=== PATIENT | female | born 1955 | race Caucasian/White ===

== ENCOUNTER → 2019-03-20 12:20 | Outpatient (CLI) | payer OTHER, SELFPAY ==
--- NOTE | 2019-03-20 | DI.MG.S_ITS ---
BILATERAL DIGITAL SCREENING MAMMOGRAM 3D/2D WITH CAD: 03/20/2019 CLINICAL: Routine screening. Comparison is made to exams dated: 02/24/2017 mammogram - [facility], 05/02/2013 mammogram, and 04/16/2012 mammogram - [facility]. The tissue of both breasts is heterogeneously dense. This may lower the sensitivity of mammography. Current study was also evaluated with a Computer Aided Detection (CAD) system. No significant masses, calcifications, or other findings are seen in either breast. There has been no significant interval change. IMPRESSION: NEGATIVE There is no mammographic evidence of malignancy. A 1 year screening mammogram is recommended. This exam was interpreted at Station ID: [id number]. NOTE: For mammograms, a report in lay terms will be sent to the patient. Approximately 15% of breast malignancies will not be visualized mammographically. In the management of a palpable breast mass, a negative mammogram must not discourage biopsy of a clinically suspicious lesion. Electronically Signed By: Emil boateng/jami:03/20/2019 16:53:43 letter sent: Normal Exam ACR BI-RADS Category 1: Negative 3341F
== END ==
PROVIDERS: PCP Nurse Practitioner Family; Visit Provider Nurse Practitioner Family
DX: Z12.31 Encounter for screening mammogram for malignant neoplasm of breast (principal)
CPT/HCPCS: 77063; 77067

== ENCOUNTER → 2021-03-09 10:43 | Outpatient (CLI) | payer MEDICARE, OTHER, SELFPAY ==
--- NOTE | 2021-03-09 | DI.MG.S_ITS ---
BILATERAL DIGITAL SCREENING MAMMOGRAM 3D/2D WITH CAD: 03/09/2021 CLINICAL: Routine screening. Comparison is made to exams dated: 03/20/2019 mammogram - [facility], 05/02/2013 mammogram [facility], and 02/24/2017 mammogram - [facility]. The tissue of both breasts is heterogeneously dense. This may lower the sensitivity of mammography. Current study was also evaluated with a Computer Aided Detection (CAD) system. No significant masses, calcifications, or other findings are seen in either breast. There has been no significant interval change. IMPRESSION: NEGATIVE There is no mammographic evidence of malignancy. A 1 year screening mammogram is recommended. This exam was interpreted at Station ID: [id number]. NOTE: For mammograms, a report in lay terms will be sent to the patient. Approximately 15% of breast malignancies will not be visualized mammographically. In the management of a palpable breast mass, a negative mammogram must not discourage biopsy of a clinically suspicious lesion. Electronically Signed By: Nilson barraza/jami:03/09/2021 12:35:52 letter sent: Normal Exam ACR BI-RADS Category 1: Negative 3341F
--- NOTE | 2021-03-09 10:53 | DI.CT.S_ITS ---
PROCEDURE: CT CHEST WO CON INDICATIONS: left lower lobe nodule TECHNIQUE: Noncontrast 5 mm thick sections acquired from the pulmonary apices to the posterior costophrenic angles. 1 mm lung window, 5 mm thick coronal and sagittal and 7 mm axial MIP reformats were then acquired. For radiation dose reduction, the following was used: automated exposure control, adjustment of mA and/or kV according to patient size. COMPARISON: [facility], , CT THORAX W/O CONTRAST, 09/16/2020, 6:31. FINDINGS: Image quality: Excellent. Lungs and pleura: Irregular subpleural nodule in the superior segment left lower lobe measures 7 mm, stable. 3 mm subpleural nodule lateral left upper lobe, is also stable. No other lung nodules. Central and peripheral airways are patent without bronchial wall thickening or bronchiectasis. No pleural effusions or pleural calcifications. Mediastinum: Heart size is normal. No pericardial effusion. No mediastinal adenopathy by size criteria. Thoracic aorta and central pulmonary arteries are normal in size. Esophagus is normal in caliber. No hiatal hernia. Bones and chest wall: No suspicious bony lesions. No vertebral body compression fractures. No axillary or supraclavicular adenopathy by size criteria. Thyroid gland contains two coarse calcifications in the right lobe. . Abdomen: There is a peripherally calcified cystic lesion within the anterior spleen measuring 1.5 cm. Visualized upper abdominal solid organs and bowel loops appear otherwise normal in the absence of contrast. IMPRESSION: 1. Stable left upper and lower lung nodules, the larger measuring 7 mm. 12-18 month follow-up is recommended. 2. Heterogeneous thyroid gland with calcifications. Consider thyroid ultrasound if not previously performed. 3. Calcified splenic lesion, likely result of old injury or infection. Dictated by: Kelsea Choi M.D. on 03/09/2021 at 15:07 Approved by: Kelsea Choi M.D. on 03/09/2021 at 15:14
== END ==
PROVIDERS: PCP Nurse Practitioner; Referring Provider Nurse Practitioner; Visit Provider Nurse Practitioner
DX: Z12.31 Encounter for screening mammogram for malignant neoplasm of breast (principal)
CPT/HCPCS: 71250; 77063; 77067

== ENCOUNTER → 2021-03-16 15:08 | Outpatient (CLI) | payer MEDICARE, OTHER, SELFPAY ==
[2021-03-16 16:44] LABS: Thyroid Stimulating Hormone 7.13 uIU/mL (0.47-4.68)
== END ==
PROVIDERS: PCP Nurse Practitioner; Referring Provider Nurse Practitioner; Visit Provider Nurse Practitioner
DX: E03.9 Hypothyroidism, unspecified (principal); Z79.899 Other long term (current) drug therapy
CPT/HCPCS: 36415; 84443

== ENCOUNTER → 2021-03-23 11:15 | Outpatient (CLI) | payer MEDICARE, OTHER, SELFPAY ==
--- NOTE | 2021-03-23 11:16 | DI.US.S_ITS ---
PROCEDURE: US THYROID INDICATIONS: FOLLOW UP CT 03/09/2021 TECHNIQUE: Real-time scanning was performed of the thyroid gland, with image documentation. COMPARISON: [facility], CT, CT CHEST WO [facility], 03/09/2021, 10:56. FINDINGS: Right: Thyroid lobe measures 5.4 x 1.5 x 1.5 cm. Texture is heterogenous.. Left: Thyroid lobe measures 4.6 x 1.3 x 1.5 cm. Texture is heterogenous. Isthmus: 5.5 mm thick. Nodule number: 1 Location: Right superior lobe Size: 4 x 7 mm cm. Composition: Solid Echogenicity: Hyperechoic shadowing Shape: wider than tall. Margins: Smooth Echogenic foci: Macrocalcification Total points: 4 ACR TI-RADS category: 4, less than 1.5 cm Nodule number: 2 Location: Right midpole Size: 8 x 7 x 7 mm cm. Composition: Solid Echogenicity: Hypoechoic Shape: Wider than tall Margins: Smooth Echogenic foci: Peripheral calcifications Total points: 6 ACR TI-RADS category: 4, less than 1.5 cm Nodule number: 3 Location: Left inferior Size: 2.0 x 1.4 x 0.8 cm cm. Composition: Predominantly solid Echogenicity: Hyperechoic Shape: wider than tall. Margins: Smooth Echogenic foci: None Total points: 3 ACR TI-RADS category: 3, less than 2.5 cm Nodule number: 4 Location: Solid Size: 1.3 x 0.9 x 0.5 Composition: Solid Echogenicity: Hypoechoic Shape: wider than tall. Margins: Smooth Echogenic foci: None Total points: 4 ACR TI-RADS category: 4, less than 1.5 cm IMPRESSION: Heterogenous multinodular thyroid. Recommend follow-up ultrasound in 1 year to ensure stability. Dictated by: Ed iJn M.D. on 03/23/2021 at 15:12 Approved by: Ed Jin M.D. on 03/23/2021 at 15:38
== END ==
PROVIDERS: PCP Nurse Practitioner; Referring Provider Nurse Practitioner; Visit Provider Registered Nurse
DX: E04.2 Nontoxic multinodular goiter (principal)
CPT/HCPCS: 76536

== ENCOUNTER → 2021-04-22 13:39 | Outpatient (CLI) | payer MEDICARE, OTHER, SELFPAY ==
--- NOTE | 2021-04-22 13:39 | DI.ECHO.S_ITS ---
[facility]+ [facility] +---------+ : : [address] [place] : : : : [id number] : : : : Phone: [phone]+ Echocardiogram Report + + :Name: FAVIO DE SANTIAGO Study Date: 04/22/2021 Height: 66.5 in: :[facility] ReadingLocation: Weight: 190 lb : : Gender: Female BSA: 2.0 m2 : :: 1955 Age: 65 yrs BP: 164/82 mmHg: :Reason For Study: MURMUR : :Ordering Physician: MARCOS, : :JULISSA Performed By: Briseida Jay : :Referring: JULISSA RODRÍGUEZ : + + Interpretation Summary The left ventricle is normal in size and wall thickness. Left ventricular systolic function appears normal without focal wall motion abnormalities. The ejection fraction is estimated to be 60-65%. Diastolic parameters suggest probable normal left ventricular diastolic function and normal filling pressures. The right ventricle is normal in size and function. The left atrium is moderately dilated. Right atrial size is normal. The aortic valve is not well visualized. The aortic valve is mildly calcified. There is no other significant valvular heart disease. The aortic root is normal size. Procedure: A two-dimensional transthoracic echocardiogram with color flow and Doppler was performed. The study quality was technically adequate. There is no prior echocardiogram noted for this patient. The patient was in sinus rhythm with heart rates between 50-70 bpm during the exam. Left Ventricle: The left ventricle is normal in size and wall thickness. Left ventricular systolic function appears normal without focal wall motion abnormalities. The ejection fraction is estimated to be 60-65%. Diastolic parameters suggest probable normal left ventricular diastolic function and normal filling pressures. Right Ventricle: The right ventricle is normal in size and function. Atria: The left atrium is moderately dilated. Right atrial size is normal. There is no Doppler evidence for an interatrial shunt. Mitral Valve: The mitral valve is normal in structure and function. There is trace mitral regurgitation. Aortic Valve: The aortic valve is not well visualized. The aortic valve is mildly calcified. There is mild aortic valve sclerosis. The peak aortic velocity is 2.1 m/sec. The aortic valve mean gradient is 9 mmHg. No aortic regurgitation is present. Tricuspid Valve: The tricuspid valve is normal in structure and function. There is trace tricuspid regurgitation. Pulmonic Valve: The pulmonic valve is not well visualized. There is no pulmonic valvular regurgitation. There is no other significant valvular heart disease. Great Vessels: The aortic root is normal size. The dimensions of the ascending aorta are normal. The IVC is of normal diameter and collapses greater than 50% with a sniff. This suggests a low right atrial pressure of 3 mm Hg. Pericardium/ Pleura There is no pericardial effusion. There is no pleural effusion. MMode/2D Measurements & Calculations LVIDd: 5.3 cm LVOT diam: 2.0 cm LVIDs: 3.3 cm Ao root diam: 2.7 cm FS: 38.2 % asc Aorta Diam: 3.3 cm IVSd: 0.95 cm Ao Arch Diam (Prox Trans): 2.6 cm LVPWd: 0.89 cm LV mohan. diameter/BSA (cm/m^2): 2.7 LV sys. diameter/BSA (cm/m^2): 1.7 LA A2 area: 23.5 cm2 RA long axis: 5.0 cm LA A4 area: 24.7 cm2 RA area: 17.1 cm2 LA length (vol): 6.0 cm RA vol: 49.4 ml LA vol: 82.2 ml RA : 25.1 ml/m2 LA vol index: 41.8 ml/m2 IVC diam: 1.4 cm RVD1 (basal): 3.7 cm TAPSE: 2.4 cm Doppler Measurements & Calculations Ao V2 max: 208.8 cm/sec LVOT Max John: 112.1 cm/sec Ao V2 mean: 133.1 cm/sec LV V1 max P.1 mmHg Ao max P.7 mmHg LV V1 VTI: 27.5 cm Ao mean P.0 mmHg VICKIE(I,D): 1.7 cm2 Ao V2 VTI: 48.8 cm VICKIE(V,D): 1.6 cm2 sev ratio: 0.56 VICKIE indexed to BSA (cm^2/m^2): 0.86 MV E max john: 95.2 cm/sec PA V2 max: 111.7 cm/sec MV A max john: 71.9 cm/sec PA V2 mean: 73.0 cm/sec MV E/A: 1.3 PA mean P.5 mmHg Med Peak E' John: 6.3 cm/sec PA pr(Accel): 29.3 mmHg E/E' med: 15.0 Lat Peak E' John: 10.1 cm/sec E/E' lat: 9.4 E/e' average: 12.2 MV dec time: 0.32 sec SV(LVOT): 82.4 ml Reading Physician:03:26 PM
== END ==
PROVIDERS: PCP Nurse Practitioner; Referring Provider Nurse Practitioner; Visit Provider Nurse Practitioner
DX: R01.1 Cardiac murmur, unspecified (principal); I34.0 Nonrheumatic mitral (valve) insufficiency; I07.1 Rheumatic tricuspid insufficiency
CPT/HCPCS: 93306

== ENCOUNTER → 2021-04-26 13:18 | Outpatient (CLI) | payer MEDICARE, OTHER, SELFPAY ==
[2021-04-26 14:47] LABS: Free T3, Triiodothyronine Free 3.44 pg/mL (2.77-5.27); Free T4, Direct Thyroxine 1.23 ng/dL (0.78-2.19)
[2021-04-26 15:01] LABS: Thyroid Stimulating Hormone 1.46 uIU/mL (0.47-4.68)
[2021-04-27 08:14] LABS: Thyroid Peroxidase Antibodies 275 IU/mL (0-34)
== END ==
PROVIDERS: PCP Nurse Practitioner; Referring Provider Nurse Practitioner; Visit Provider Nurse Practitioner
DX: E03.9 Hypothyroidism, unspecified (principal); Z79.899 Other long term (current) drug therapy
CPT/HCPCS: 36415; 84439; 84443; 84481; 86376

== ENCOUNTER → 2022-03-10 11:10 | Outpatient (CLI) | payer MEDICARE, OTHER, SELFPAY ==
--- NOTE | 2022-03-10 11:11 | DI.CT.S_ITS ---
PROCEDURE: CT CHEST WO CON INDICATIONS: f/up imaging 09/[address] [facility] and 03/09/21 [place] (2) LLL TECHNIQUE: Noncontrast 2.0-2.5 mm thick sections acquired from the pulmonary apices to the posterior costophrenic angles. 7 mm thick axial MIP and 5 mm coronal and sagittal reformats were then acquired. A low radiation dose technique was utilized. COMPARISON: [facility], RG, CT THORAX W/O CONTRAST, 09/16/2020, 6:31. [facility], CT, CT CHEST WO CON, 03/09/2021, 10:56. FINDINGS: Image quality: Diagnostic, given the low radiation dose technique. Lungs and pleura: No acute airspace opacities. No pleural effusion or pneumothorax. The 7 mm pulmonary nodule within the superior segment of the left lower lobe is unchanged when compared with the CT dated September 16, 2020 (series 3/image 95). No new pulmonary nodules. Mediastinum: Heart size is normal. No pericardial effusion. No mediastinal adenopathy by size criteria. Thoracic aorta and central pulmonary arteries are normal in size. Esophagus is normal in caliber. No hiatal hernia. Bones and chest wall: No suspicious bony lesions. No vertebral body compression fractures. No axillary or supraclavicular adenopathy by size criteria. Calcifications are redemonstrated within the right thyroid lobe. The left thyroid lobe is unremarkable. Abdomen: Visualized upper abdomen solid organs and bowel loops appear normal in the absence of contrast. IMPRESSION: Stable 7 mm left lower lobe pulmonary nodule when compared with the study dated September 16, 2020. Please see follow-up guidelines below. In a low risk patient, no further follow-up recommended. Fleischner Society criteria for SOLID lung nodule followup. Nodule size (mm)Low-risk patientHigh-risk patient<6 (single or multiple)No routine followup.Optional CT at 12 months. 6-8 (single or multiple)CT at 6-12 months, then optional CT at 18-24 mo.CT at 6-12 months, then CT at 18-24 months. >8 (single)CT at 3 months, PET-CT, or biopsy. Same as for low-risk pts. >8 (multiple)CT at 3-6 months, then optional CT at 18-24 mo.CT at 3-6 months, then CT at 18-24 months. Fleischner Society criteria for SUB-SOLID lung nodule followup. Solitary pure ground-glass nodules<6 mm (ground glass or part solid)No followup needed. 6 mm or larger (ground glass)CT at 6-12 months to confirm persistence, then CT every 2 years until 5 years.6 mm or larger (part solid)CT at 3-6 months to confirm persistence, then annual CT until 5 years if unchanged and solid component remains <6 mm. Multiple sub-solid nodules<6 mmCT at 3-6 months, then CT consider at 2 & 4 years for high risk patients. [address] at 3-6 months. Subsequent management based on most suspicious lesions. Recommendations do not apply to lung cancer screening, patients with immunosuppression, or patients with known primary cancer. Dictated by: Emely Bose M.D. on 03/10/2022 at 12:37 Approved by: Emely Bose M.D. on 03/10/2022 at 12:42
== END ==
PROVIDERS: PCP Nurse Practitioner; Referring Provider Nurse Practitioner; Visit Provider Nurse Practitioner
DX: R91.1 Solitary pulmonary nodule (principal)
CPT/HCPCS: 71250

== ENCOUNTER → 2022-05-12 11:03 | Outpatient (CLI) | payer MEDICARE, OTHER, SELFPAY ==
--- NOTE | 2022-05-12 11:04 | DI.MG.S_ITS ---
BILATERAL DIGITAL SCREENING MAMMOGRAM 3D/2D WITH CAD: 05/12/2022 CLINICAL: Routine screening. Comparison is made to exams dated: 03/09/2021 mammogram, 03/20/2019 mammogram, and 02/24/2017 mammogram - [facility]. Both breasts are heterogeneously dense, which may obscure small masses (category c / 51-75% glandular tissue). Current study was also evaluated with a Computer Aided Detection (CAD) system. No significant masses, calcifications, or other findings are seen in either breast. There has been no significant interval change. IMPRESSION: NEGATIVE There is no mammographic evidence of malignancy. A 1 year screening mammogram is recommended. Based on the Tyrer Cuzick model (a risk assessment model) the patient's lifetime risk is 10.0% and her 10 year risk is 5.3%. According to the ACR, ACS, and NCCN guidelines, an annual breast MRI exam along with mammogram is recommended if the patient's lifetime risk is 20% or greater. This exam was interpreted at Station ID: [id number]. NOTE: For mammograms, a report in lay terms will be sent to the patient. Approximately 15% of breast malignancies will not be visualized mammographically. In the management of a palpable breast mass, a negative mammogram must not discourage biopsy of a clinically suspicious lesion. Electronically Signed By: Kelsea pablo/jami:05/16/2022 15:56:33 letter sent: Normal Exam ACR BI-RADS Category 1: Negative 3341F
--- NOTE | 2022-05-12 11:04 | DI.US.S_ITS ---
PROCEDURE: US THYROID INDICATIONS: US abnormality, 1 year follow up. TECHNIQUE: Real-time scanning was performed of the thyroid gland, with image documentation. COMPARISON: [facility], US, US THYROID, 03/23/2021, 11:34. FINDINGS: Right: Thyroid lobe measures 4.7 x 1.5 x 1.3 cm, and is heterogeneous in echotexture. Left: Thyroid lobe measures 4.8 x 1.4 x 1.7 cm, and is heterogeneous in echotexture. Isthmus: 4 mm thick. Nodule number: 1 Location: Right lobe inferior Size: 0.9 x 0.7 x 0.6 cm. Previously 0.8 x 0.7 x 0.7 cm no significant change Composition: Solid Echogenicity: Hypoechoic Shape: wider than tall. Margins: smooth Echogenic foci: macro calcification Total points: 5 ACR TI-RADS category: 4 Nodule number: 2 Location: Right lobe superior Size: 0.4 x 0.3 x 0.4 cm. Previously 0.4 x 0.7 cm no significant change Composition: Solid Echogenicity: Hypoechoic Shape: wider than tall. Margins: Smooth Echogenic foci: Macrocalcification Total points: 5 ACR TI-RADS category: 4 Nodule number: 3 Location: Left lobe inferior Size: 2.0 x 0.9 x 1.2 cm. Previously 2.0 x 0.8 x 1.4 cm no significant change Composition: Predominantly solid Echogenicity: Hyperechoic Shape: wider than tall. Margins: Smooth Echogenic foci: None Total points: 3 ACR TI-RADS category: 3 Nodule number: 4 Location: Left lobe superior Size: 0.7 x 0.4 x 0.6 cm. Previously 1.3 x 0.9 x 0.5 cm decrease in size Composition: Solid Echogenicity: Hypoechoic Shape: wider than tall. Margins: Smooth Echogenic foci: None Total points: 4 ACR TI-RADS category: 4 IMPRESSION: Multiple thyroid nodules present as above, none meeting TI-RADS criteria for FNA recommendation. Follow-up is recommended as below. ACR TI-RADS definitions and recommendations: TI-RADS 1 (benign): 0 points. FNA not needed. TI-RADS 2 (not suspicious): 2 points. FNA not needed. TI-RADS 3 (mildly suspicious): 3 points. * FNA if 2.5 cm or larger, follow up if 1.5 cm or larger (at 1, 3, and 5 years). TI-RADS 4 (moderately suspicious): 4-6 points. * FNA if 1.5 cm or larger, follow up if 1 cm or larger (at 1, 2, 3, and 5 years). TI-RADS 5 (highly suspicious): 7 points or more. * FNA if 1 cm or larger, follow up if 0.5 cm or larger (every year for 5 years). Dictated by: Nilson Almanzar M.D. on 05/12/2022 at 13:39 Approved by: Nilson Almanzar M.D. on 05/12/2022 at 13:49
== END ==
PROVIDERS: PCP Nurse Practitioner; Referring Provider Nurse Practitioner; Visit Provider Nurse Practitioner
DX: Z12.31 Encounter for screening mammogram for malignant neoplasm of breast (principal); E06.3 Autoimmune thyroiditis; E04.2 Nontoxic multinodular goiter
CPT/HCPCS: 76536; 77063; 77067

== ENCOUNTER → 2023-06-19 09:48 | Outpatient (CLI) | payer MEDICARE, OTHER, SELFPAY ==
--- NOTE | 2023-06-19 09:49 | DI.US.S_ITS ---
PROCEDURE: US THYROID INDICATIONS: multiple thyroid nodule surveillance TECHNIQUE: Real-time scanning was performed of the thyroid gland, with image documentation. COMPARISON: [facility], US, US THYROID, 05/12/2022, 11:32. FINDINGS: Thyroid: Right lobe measures 5.1 x 1.3 x 1.0 cm. Left lobe measures 3.8 x 0.9 x 1.5 cm. Isthmus is 0.4 cm thick. Echotexture is homogeneous. Nodule number: 1 Location: Right inferior Size: 0.8 centimeters, previously 0.9 cm. Composition: Solid Echogenicity: Hypoechoic Shape: wider than tall. Margins: Smooth Echogenic foci: Macro calcifications Total points: 5 ACR TI-RADS category: Moderately suspicious Nodule number: 2 Location: Right superior Size: Stable at 0.4 cm. Composition: Solid Echogenicity: Hypoechoic Shape: wider than tall. Margins: Smooth Echogenic foci: Macro calcifications Total points: 5 ACR TI-RADS category: Moderately suspicious Nodule number: 3 Location: Left inferior Size: Stable at 1.8 cm. Composition: Solid Echogenicity: Hyperechoic Shape: wider than tall. Margins: Smooth Echogenic foci: None Total points: 3 ACR TI-RADS category: Mildly suspicious Nodule number: 4 Location: Left superior Size: 1.3 cm, increased compared to prior but stable compared to more distant priors. Composition: Solid Echogenicity: Hypoechoic Shape: wider than tall. Margins: Ill-defined Echogenic foci: None Total points: 4 ACR TI-RADS category: Moderately suspicious IMPRESSION: Stable thyroid nodules as described above. No nodules meet TI-RADS criteria for fine-needle aspiration. Follow-up is recommended as below. ACR TI-RADS definitions and recommendations: TI-RADS 1 (benign): 0 points. FNA not needed. TI-RADS 2 (not suspicious): 2 points. FNA not needed. TI-RADS 3 (mildly suspicious): 3 points. * FNA if 2.5 cm or larger, follow up if 1.5 cm or larger (at 1, 3, and 5 years). TI-RADS 4 (moderately suspicious): 4-6 points. * FNA if 1.5 cm or larger, follow up if 1 cm or larger (at 1, 2, 3, and 5 years). TI-RADS 5 (highly suspicious): 7 points or more. * FNA if 1 cm or larger, follow up if 0.5 cm or larger (every year for 5 years). Dictated by: Scar Castaneda M.D. on 06/19/2023 at 11:07 Approved by: Sacr Castaneda M.D. on 06/19/2023 at 11:13
== END ==
LOC: US 09:49
PROVIDERS: PCP Nurse Practitioner; Referring Provider Nurse Practitioner; Visit Provider Nurse Practitioner
DX: E06.3 Autoimmune thyroiditis (principal); E04.2 Nontoxic multinodular goiter
CPT/HCPCS: 76536

== ENCOUNTER → 2023-09-19 10:00 | Outpatient (CLI) | payer MEDICARE, OTHER, SELFPAY ==
--- NOTE | 2023-09-19 10:02 | DI.MG.S_ITS ---
BILATERAL DIGITAL SCREENING MAMMOGRAM 3D/2D WITH CAD: 09/19/2023 CLINICAL: Routine screening. Comparison is made to exams dated: 05/12/2022 mammogram, 03/09/2021 mammogram, and 03/20/2019 mammogram - [facility]. Both breasts are heterogeneously dense, which may obscure small masses (category c / 51-75% glandular tissue). Current study was also evaluated with a Computer Aided Detection (CAD) system. No significant masses, calcifications, or other findings are seen in either breast. There has been no significant interval change. IMPRESSION: NEGATIVE There is no mammographic evidence of malignancy. A 1 year screening mammogram is recommended. Based on the Tyrer Cuzick model (a risk assessment model) the patient's lifetime risk is 9.0% and her 10 year risk is 5.3%. According to the ACR, ACS, and NCCN guidelines, an annual breast MRI exam along with mammogram is recommended if the patient's lifetime risk is 20% or greater. This exam was interpreted at Station ID: [id number]. NOTE: For mammograms, a report in lay terms will be sent to the patient. Approximately 15% of breast malignancies will not be visualized mammographically. In the management of a palpable breast mass, a negative mammogram must not discourage biopsy of a clinically suspicious lesion. Electronically Signed By: Emil boateng/jami:09/20/2023 09:33:53 letter sent: Normal Exam ACR BI-RADS Category 1: Negative 3341F
== END ==
LOC: MAMMO 10:01
PROVIDERS: PCP Nurse Practitioner; Referring Provider Nurse Practitioner; Visit Provider Nurse Practitioner
DX: Z12.31 Encounter for screening mammogram for malignant neoplasm of breast (principal); R92.333 Mammographic heterogeneous density, bilateral breasts
CPT/HCPCS: 77063; 77067

== ENCOUNTER → 2024-03-01 13:40 | Outpatient (CLI) | payer MEDICARE, OTHER, SELFPAY ==
--- NOTE | 2024-03-01 13:42 | DI.ECHO.S_ITS ---
[place] [facility]---------+ [facility] : : [id number] : : [address] : : [id number] : : Phone: [phone] Echocardiogram Report + + :Name: FAVIO DE SANTIAGO Study Date: 03/01/2024 Height: 66.5 in: :[facility] ReadingLocation: Weight: 190 lb : : Gender: Female BSA: 2.0 m2 : :: 1955 Age: 68 yrs BP: 131/71 mmHg: :Reason For Study: MURMUR : :Ordering Physician: RENAN, : :KESHIA Performed By: Briseida Jay : :Referring: KESHIA URRUTIA : + + Interpretation Summary The ejection fraction is estimated to be 55-60%. There is moderate aortic valve sclerosis. The calculated aortic valve area is 1.7 cm2. Procedure: A two-dimensional transthoracic echocardiogram with color flow and Doppler was performed. The study quality was technically adequate. Comparison is made with the echocardiogram of 04/22/2021. The patient was in sinus rhythm with heart rates between 56-72 bpm during the exam. Left Ventricle: The left ventricle is normal in size and wall thickness. The ejection fraction is estimated to be 55-60%. Left ventricular wall motion is normal. Diastolic parameters suggest a relaxation abnormality of the left ventricle, consistent with probable normal filling pressures. Right Ventricle: The right ventricle is normal in size and function. Atria: The left atrium is mildly dilated. Right atrial size is normal. There is no Doppler evidence for an interatrial shunt. Mitral Valve: The mitral valve leaflets appear mildly thickened, but open well. There is trace mitral regurgitation. Aortic Valve: The aortic valve is trileaflet. The aortic valve is mildly calcified. There is moderate aortic valve sclerosis. The peak aortic velocity is 2.5 m/sec. The aortic valve mean gradient is 12 mmHg. The calculated aortic valve area is 1.7 cm2. No aortic regurgitation is present. Tricuspid Valve: The tricuspid valve is normal in structure and function. No tricuspid regurgitation. Pulmonary artery pressures cannot be estimated because of the lack of a measurable TR jet velocity. Pulmonic Valve: The pulmonic valve is not well visualized. There is no pulmonic valvular regurgitation. Great Vessels: The aortic root is normal size. The dimensions of the ascending aorta are normal. The IVC is of normal diameter and collapses greater than 50% with a sniff. This suggests a low right atrial pressure of 3 mm Hg. Pericardium/ Pleura There is no pericardial effusion. There has been no significant change since the previous study. MMode/2D Measurements & Calculations LVIDd: 4.7 cm LVOT diam: 2.0 cm LVIDs: 3.0 cm Ao root diam: 2.8 cm FS: 36.3 % asc Aorta Diam: 3.4 cm IVSd: 0.75 cm Ao Arch Diam (Prox Trans): 2.7 cm LVPWd: 0.73 cm LV mohan. diameter/BSA (cm/m^2): 2.4 LV sys. diameter/BSA (cm/m^2): 1.5 LA A2 area: 24.5 cm2 RA long axis: 4.7 cm LA A4 area: 19.0 cm2 RA area: 17.5 cm2 LA length (vol): 5.6 cm RA vol: 55.1 ml LA vol: 70.8 ml RA : 28.0 ml/m2 LA vol index: 35.9 ml/m2 IVC diam: 1.3 cm RVD1 (basal): 3.7 cm RVD2 (mid): 2.8 cm TAPSE: 2.3 cm Doppler Measurements & Calculations Ao V2 max: 253.0 cm/sec LVOT Max John: 142.1 cm/sec Ao V2 mean: 157.6 cm/sec LV V1 max P.1 mmHg Ao max P.2 mmHg LV V1 VTI: 31.1 cm Ao mean P.3 mmHg VICKIE(I,D): 2.0 cm2 Ao V2 VTI: 47.9 cm VICKIE(V,D): 1.7 cm2 sev ratio: 0.65 VICKIE indexed to BSA (cm^2/m^2): 1.00 MV E max john: 97.5 cm/sec PA V2 max: 119.6 cm/sec MV A max john: 78.5 cm/sec PA V2 mean: 85.7 cm/sec MV E/A: 1.2 PA mean P.2 mmHg Med Peak E' John: 10.2 cm/sec PA pr(Accel): 31.0 mmHg E/E' med: 9.6 Lat Peak E' John: 12.1 cm/sec E/E' lat: 8.0 E/e' average: 8.8 MV dec time: 0.30 sec SV(LVOT): 93.9 ml Reading Physician:03:52 PM
== END ==
PROVIDERS: PCP Nurse Practitioner Family; Referring Provider Nurse Practitioner Family; Visit Provider Nurse Practitioner Family
DX: R01.1 Cardiac murmur, unspecified (principal); I35.8 Other nonrheumatic aortic valve disorders
CPT/HCPCS: 93306

== ENCOUNTER → 2024-07-25 11:29 | Outpatient (CLI) | payer MEDICARE, OTHER, SELFPAY ==
--- NOTE | 2024-07-25 11:30 | DI.US.S_ITS ---
PROCEDURE: US THYROID INDICATIONS: thyroid nodule TECHNIQUE: Real-time scanning was performed of the thyroid gland, with image documentation. COMPARISON: [facility], [place], US THYROID, 06/19/2023, 10:02. [facility], [place], US THYROID, 05/12/2022, 11:32. [facility], [place], US THYROID, 03/23/2021, 11:34. FINDINGS: Thyroid: Right lobe measures 5.7 x 1.4 x 0.8 cm. Left lobe measures 4.1 x 1.4 cm. Isthmus is 0.5 cm thick. Echotexture is heterogenous. Nodule number: 1 Location: Right inferior Size: 0.7 x 0.5 x 0.4 cm. Composition: Solid Echogenicity: Isoechoic Shape: wider than tall. Margins: Cannot be determined Echogenic foci: Macrocalcification Total points: 5 ACR TI-RADS category: TR 4 Nodule number: 2 Calcifications seen in the area of the prior nodule Nodule number: 3 Location: Left inferior pole Size: 1.6 x 0.6 x 1.0 (1.8 x 0.6 x 1.1) cm. Composition: Solid Echogenicity: Isoechoic Shape: wider than tall. Margins: Smooth Echogenic foci: None Total points: 3 ACR TI-RADS category: TR 3 Nodule number: 4 Location: Left superior pole Size: 1.4 x 0.3 x 0.6 (previously 1.2 x 0.3 x 0.6) cm. Composition: Solid Echogenicity: Hypoechoic Shape: wider than tall. Margins: Ill-defined Echogenic foci: None Total points: 3 ACR TI-RADS category: TR 3 IMPRESSION: No significant change in thyroid nodules. Please refer to the below guidelines for additional thyroid ultrasound follow-up; the follow-up intervals are designated from the time of the initial examination/detection. ACR TI-RADS definitions and recommendations: TI-RADS 1 (benign): 0 points. FNA not needed. TI-RADS 2 (not suspicious): 2 points. FNA not needed. TI-RADS 3: 3 points. * FNA if 2.5 cm or larger, follow up if 1.5 cm or larger (at 1, 3, and 5 years). TI-RADS 4: 4-6 points. * FNA if 1.5 cm or larger, follow up if 1 cm or larger (at 1, 2, 3, and 5 years). TI-RADS 5: 7 points or more. * FNA if 1 cm or larger, follow up if 0.5 cm or larger (every year for 5 years). Dictated by: Federico Varghese M.D. on 07/25/2024 at 15:22 Approved by: Federico Varghese M.D. on 07/25/2024 at 15:30
== END ==
PROVIDERS: PCP Nurse Practitioner Family; Referring Provider Nurse Practitioner Family; Visit Provider Nurse Practitioner Family
DX: E04.2 Nontoxic multinodular goiter (principal)
CPT/HCPCS: 76536

== ENCOUNTER → 2024-09-19 12:38 | Outpatient (CLI) | payer MEDICARE, OTHER, SELFPAY ==
--- NOTE | 2024-09-19 12:39 | DI.RAD.S_ITS ---
PROCEDURE: XR DEXA AXIAL SKELETON INDICATIONS: asymptomatic age related postmenopausal state COMPARISON: None. FINDINGS: Lumbar Spine: Bone mineral density 1.033 g/cm2, T score -0.1. Left Femoral Neck: Bone mineral density 0.627 g/cm2, T score -2.0. Left Hip: Bone mineral density 0.777 g/cm2, T score -1.3. Fracture Risk Calculation (when applicable): 10-year fracture risk of a major osteoporotic fracture 11 percent and of a hip fracture 2.0 percent. (T score greater or equal to -1.0 to: NORMAL) (T score from -1.1 to -2.4: OSTEOPENIA) (T score less than or equal to -2.5: OSTEOPOROSIS) IMPRESSION: Osteopenia with increased 10 year fracture risk as above. Follow-up guidelines as follows: Osteoporosis: Consider a repeat DEXA and Vertebral Fracture Assessment (VFA) exam in 2 years or sooner if medically necessary, to reassess this patient's status. Osteopenia: Consider a repeat DEXA in 2-3 years to reassess this patient's status, or if there is a new clinical indication. Normal: Consider a repeat DEXA in 5 years or sooner, or if there is a new clinical indication. All treatment decisions require clinical judgment and consideration of individual patient factors, including patient preferences, comorbidities, previous drug use, risk factors not captured in the FRAX model (e.g., frailty, falls, vitamin D deficiency, increased bone turnover, interval significant decline in bone density ) and possible under- or over-estimation of fracture risk by FRAX. In addition, the NOF Guide recommends that FDA-approved medical therapies be considered in postmenopausal women and men age >= 50 years with a: * Hip or vertebral (clinical or morphometric) fracture * T-score of <=-2.5 at the spine or hip * Ten-year fracture probability by FRAX of >= 3% for hip fracture or >=20% for major osteoporotic fracture. Dictated by: Jamison Mullins M.D. on 09/22/2024 at 1:14 Approved by: Jamison Mullins M.D. on 09/22/2024 at 1:15
--- NOTE | 2024-09-19 12:39 | DI.MG.S_ITS ---
MM screening mammo BI: 09/19/2024. BI-RADS: 1 CLINICAL: 69-year old female for bilateral screening mammogram. Tyrer-Cuzick lifetime risk of 6.1%. No personal or first-degree family history of breast cancer. PRIOR EXAMS 09/19/2023, 05/12/2022, 03/09/2021, 03/20/2019, 02/24/2017. MAMMOGRAPHY TECHNIQUE: 2D and 3D (tomosynthesis) digital mammographic views obtained, with additional images as needed for full coverage. Current study was also evaluated with a Computer Aided Detection (CAD) system. DENSITY C. The breasts are heterogeneously dense, which may obscure small masses. MAMMOGRAPHY FINDINGS Bilateral: No suspicious mass, asymmetry, microcalcification, or other abnormality seen. IMPRESSION: * No evidence of malignancy. RECOMMENDATIONS Bilateral * Annual screening mammography. OVERALL ASSESSMENT CATEGORY BI-RADS-1: Negative. The [employer] recommends annual screening mammography beginning at age 40 for women with average risk of breast cancer. ELECTRONICALLY SIGNED: Celia Ochoa M.D. on 09/19/2024 at 05:38:51 PM PT Interpreting Station ID: [id number]
== END ==
PROVIDERS: PCP Nurse Practitioner Family; Referring Provider Nurse Practitioner Family; Visit Provider Nurse Practitioner Family
DX: Z12.31 Encounter for screening mammogram for malignant neoplasm of breast (principal); R92.333 Mammographic heterogeneous density, bilateral breasts; Z78.0 Asymptomatic menopausal state; M85.852 Other specified disorders of bone density and structure, left thigh
CPT/HCPCS: 77063; 77067; 77080